=== PATIENT | male | born 1965 | race Caucasian/White ===

== ENCOUNTER 2019-11-17 00:44 | Emergency (ER) | payer MEDICARE ==
[~2019-11-17] VITALS: Ht 162.6 cm; Wt 86.3 kg
[2019-11-17] MEDS ORDERED: OXYC5CAP PO (00:59)
[2019-11-17] MEDS ORDERED: ALPR1TAB2 PO (00:59)
--- NOTE | 2019-11-17 00:59 | PHYS DOC ---
Past Medical History Past Medical History: DVT Past Surgical History: Other Additional Past Surgical Histo: C5-C6 FUSION, CATARACT Smoking Status: Current Every Day Smoker Alcohol Use: None Drug Use: None General Adult EDM: Chief Complaint: BACK PAIN - NO INJURY HPI: HPI: Patient is a 54 year old male presents requesting medication refill. Has been out of oxycodone and xanax x 16hours. [employer] at pharmacy and they would not fill Rx to to hand writing on Rx. Patient states doctor made the changes. Patients Rx of oxycodone and xanax states do not fill before 11/17/2019. Patient has chronic lower back pain. Review of Systems: Review of Systems: Constitutional: Denies fever or chills. [] Eyes: Denies change in visual acuity. [] HENT: Denies nasal congestion or sore throat. [] Respiratory: Denies cough or shortness of breath. [] Cardiovascular: Denies chest pain or edema. [] GI: Denies abdominal pain, nausea, vomiting, bloody stools or diarrhea. [] : Denies dysuria. [] Musculoskeletal: Denies back pain or joint pain. [] Integument: Denies rash. [] Neurologic: Denies headache, focal weakness or sensory changes. [] Endocrine: Denies polyuria or polydipsia. [] Lymphatic: Denies swollen glands. [] Psychiatric: Denies depression or anxiety. [] Heart Score: Risk Factors: Risk Factors: DM, Current or recent (<one month) smoker, HTN, HLP, family history of CAD, obesity. Risk Scores: Score 0 - 3: 2.5% MACE over next 6 weeks - Discharge Home Score 4 - 6: 20.3% MACE over next 6 weeks - Admit for Clinical Observation Score 7 - 10: 72.7% MACE over next 6 weeks - Early Invasive Strategies Allergies: Allergies: Allergies Coded Allergies Type Severity Reaction Last Updated Verified citalopram Allergy Intermediate 12/21/14 Yes quetiapine Allergy Intermediate 12/21/14 Yes trazodone Allergy Mild 12/21/14 Yes Physical Exam: PE: Constitutional: Well developed, well nourished, no acute distress, non-toxic appearance. [] HENT: Normocephalic, atraumatic, bilateral external ears normal, oropharynx moist, no oral exudates, nose normal. [] Eyes: PERRLA, EOMI, conjunctiva normal, no discharge. [] Neck: Normal range of motion, no tenderness, supple, no stridor. [] Cardiovascular:Heart rate regular rhythm, no murmur [] Lungs & Thorax: Bilateral breath sounds clear to auscultation [] Abdomen: Bowel sounds normal, soft, no tenderness, no masses, no pulsatile masses. [] Skin: Warm, dry, no erythema, no rash. [] Back: No tenderness, no CVA tenderness. [] Extremities: No tenderness, no cyanosis, no clubbing, ROM intact, no edema. [] Neurologic: Alert and oriented X 3, normal motor function, normal sensory function, no focal deficits noted. [] Psychologic: Affect normal, judgement normal, mood normal. [] EKG: EKG: [] Radiology/Procedures: Radiology/Procedures: [] Course & Med Decision Making: Course & Med Decision Making Pertinent Labs and Imaging studies reviewed. (See chart for details) [] Dragon Disclaimer: Dragon Disclaimer: This electronic medical record was generated, in whole or in part, using a voice recognition dictation system. Departure Departure Impression: Primary Impression: Medication refill Disposition: HOME, SELF-CARE Condition: STABLE Referrals: MARY ALVAREZ MD (PCP) Patient Instructions: Medication Refill, Emergency Department Scripts Alprazolam (XANAX) 1 Mg Tablet 1 TAB PO TID, #14 TAB Prov: ASCENCION HURLEY DO 11/17/19 Oxycodone Hcl (OXYCODONE HCL) 5 Mg Capsule 30 MG PO PRN Q6HRS PRN for PAIN, #14 TAB 0 Refills Prov: ASCENCION HURLEY DO 11/17/19 Justicifation of Admission Dx: Justifications for Admission: Justification of Admission Dx: N/A ASCENCION HURLEY DO Nov 17, 2019 00:59
[2019-11-17] MEDS ORDERED: ONDANSETRON ODT 4 MG TAB.RAPDIS. PO ONE ×2 (01:15→03:15)
[2019-11-17] MEDS ORDERED: ALPRAZolam 0.5 MG TABLET PO ONE (01:15)
[2019-11-17] MEDS ORDERED: MORPHINE SULFATE 4 MG/ML VIAL. IM ONE (01:30)
[2019-11-17 03:15] VITALS: BP 135/71
[2019-11-17] MEDS ORDERED: oxyCODONE ER 10 MG TAB.ER.12H PO SCH (09:00)
== END 2019-11-17 03:40 | disposition home or self-care (01) ==
LOC: ER 00:44
DX: M54.5 Low back pain (principal); F17.200 Nicotine dependence, unspecified, uncomplicated; Z86.718 Personal history of other venous thrombosis and embolism; Z98.890 Other specified postprocedural states; Z88.6 Allergy status to analgesic agent; Z88.8 Allergy status to other drugs, medicaments and biological substances; Z76.0 Encounter for issue of repeat prescription
CPT/HCPCS: 96372; 99285; J2270